=== PATIENT | female | born 1990 | race Caucasian/White ===

== ENCOUNTER 2017-08-23 01:07 | Inpatient (IN) | payer OTHER ==
[~2017-08-23] VITALS: Ht 164 cm; Wt 96.2 kg
[2017-08-23 01:34] VITALS: BP 111/68
[2017-08-23] MEDS ORDERED: RINGERS SOLUTION,LACTATED 1,000 ML IV ONE ×2 (09:55→10:03)
[2017-08-23] MEDS ORDERED: METOCLOPRAMIDE HCL 5 MG/ML 2 ML VIAL IVP ONE ×2 (10:00→18:45)
[2017-08-23] MEDS ORDERED: CITRIC ACID/SODIUM CITRATE 30 ML SOLUTION UDCUP PO ONE (10:00)
[2017-08-23] MEDS ORDERED: CeFAZolin 2 GM/DEXTROSE 50 ML IV ONE (10:03)
[2017-08-23] MEDS ORDERED: MORPHINE SULFATE/PF 1 MG/ML 10 ML AMP ONE (10:04)
[2017-08-23] MEDS ORDERED: FentaNYL CITRATE-PF 100 MCG/2 ML VIAL ONE (10:04)
[2017-08-23 10:40] LABS: BASOPHILS % (AUTO) 0.4 % (0.0-2.0); EOSINOPHILS % (AUTO) 2.5 % (1.0-6.0); HEMATOCRIT 34.7 % (36-46); HEMOGLOBIN 11.8 g/dL (12.0-16.0); LYMPHOCYTES # (AUTO) 2.2 K/uL (1.0-4.8); LYMPHOCYTES % (AUTO) 24.1 % (22.0-44.0); MEAN CORPUSCULAR HEMOGLOBIN 31.4 pg (26.0-34.0); MEAN CORPUSCULAR VOLUME 92 fL (80-100); MONOCYTES # (AUTO) 0.7 K/uL (0.1-1.0); MONOCYTES % (AUTO) 7.5 % (2.0-9.0); NEUTROPHILS # (AUTO) 5.9 K/uL (1.8-7.7); NEUTROPHILS % (AUTO) 65.5 % (40.0-70.0); PLATELET COUNT (AUTO)-OB 169 K/uL (150-450); RED BLOOD CELL COUNT(AUTO) 3.75 MIL/uL (4.00-5.20)
[2017-08-23] MEDS ORDERED: DEXAMETHASONE SOD PHOS 4 MG/ML VIAL IVP ONE (12:00)
[2017-08-23] MEDS ORDERED: LIDOCAINE HCL/PF 2% 5 ML VIAL INJ ONE (12:00)
[2017-08-23] MEDS ORDERED: ONDANSETRON HCL 2 MG/ML 20 ML VIAL IV ONE (12:00)
[2017-08-23] MEDS ORDERED: EPINEPHrine 1:1,000 [1 MG/ML] AMP IM ONE (12:00)
[2017-08-23] MEDS ORDERED: PHENYLEPHRINE HCL 10 MG/ML VIAL IVP ONE (12:00)
[2017-08-23] MEDS ORDERED: FentaNYL CITRATE-PF 100 MCG/2 ML VIAL IVP PRN ×6 (12:15→12:45)
[2017-08-23] MEDS ORDERED: ACETAMINOPHEN 1000 MG/ISO-OSM 100 ML IV ONE ×2 (12:15→13:11)
[2017-08-23] MEDS ORDERED: NALBUPHINE HCL 10 MG/ML VIAL IVP PRN (12:15)
[2017-08-23] MEDS ORDERED: ONDANSETRON HCL 4 MG/2 ML VIAL IVP PRN ×2 (12:15→12:45)
[2017-08-23] MEDS ORDERED: MEPERIDINE-PF 25 MG/ML SYRINGE IVP PRN (12:15)
[2017-08-23] MEDS ORDERED: DEXAMETHASONE SOD PHOS 4 MG/ML VIAL IVP PRN (12:15)
[2017-08-23] MEDS ORDERED: DiphenhydrAMINE HCL 50 MG/ML VIAL IVP PRN ×2 (12:15→12:45)
[2017-08-23] MEDS ORDERED: LANOLIN 7 GM OINTMENT TP PRN (12:30)
[2017-08-23] MEDS ORDERED: ACETAMINOPHEN/CODEINE 300-30 MG TABLET PO PRN ×2 (12:30)
[2017-08-23] MEDS ORDERED: NALOXONE HCL 0.4 MG/ML VIAL IVP PRN (12:45)
[2017-08-23] MEDS ORDERED: MORPHINE SULFATE 10 MG/ML SYRINGE IVP PRN (12:45)
[2017-08-23] MEDS: DEXTROSE 5%-0.45% SODIUM CHL 1,000 ML IV SCH ×3 (13:49→21:23)
[2017-08-23] MEDS ORDERED: DEXAMETHASONE SOD PHOS 10 MG/ML VIAL IVP ONE (18:45)
[2017-08-23] MEDS: NALBUPHINE HCL 10 MG/ML VIAL IVP SCH (18:51)
[2017-08-23] MEDS ORDERED: ACETAMINOPHEN 1000 MG/ISO-OSM 100 ML IV SCH (21:00)
[2017-08-24] MEDS: NALBUPHINE HCL 10 MG/ML VIAL IVP SCH ×2 (00:11→06:36)
[2017-08-24] MEDS: DEXTROSE 5%-0.45% SODIUM CHL 1,000 ML IV SCH (02:25)
[2017-08-24] MEDS: IBUPROFEN 800 MG TABLET PO SCH ×4 (04:58→23:07)
[2017-08-24] MEDS: MAGNESIUM HYDROXIDE SUSPENSION 30 ML UDCUP PO SCH ×2 (11:02→21:05)
[2017-08-25] MEDS: IBUPROFEN 800 MG TABLET PO SCH ×4 (04:59→23:01)
[2017-08-25] MEDS: MAGNESIUM HYDROXIDE SUSPENSION 30 ML UDCUP PO SCH ×2 (08:21→22:01)
[2017-08-26] MEDS: IBUPROFEN 800 MG TABLET PO SCH (06:17)
[2017-08-26] MEDS ORDERED: PERCT PO (09:48)
[2017-08-26] MEDS ORDERED: IBUP-2071 PO (09:49)
== END 2017-08-26 12:00 | disposition home or self-care (01) | DRG 765 ==
LOC: OBSVTOIN → 4S 01:07
PROVIDERS: ADMIT Obstetrics & Gynecology; ATTEND Obstetrics & Gynecology
PROC: 10D00Z1 Extraction of Products of Conception, Low, Open Approach (ICD-10-PCS; principal; 2017-08-23)
DX: O32.1XX0 Maternal care for breech presentation, not applicable or unspecified (principal); O30.003 Twin pregnancy, unspecified number of placenta and unspecified number of amniotic sacs, third trimester; Z37.2 Twins, both liveborn; Z3A.38 38 weeks gestation of pregnancy; O69.81X0 Labor and delivery complicated by cord around neck, without compression, not applicable or unspecified
CPT/HCPCS: 59025; 86850; 86900; 86901; 87081; 89060; J0131; J0171; J0690; J1100; J2300; J2370; J2405; J2765; J3010; J3490; J7120